=== PATIENT | male | born 1955 | race Caucasian/White ===

== ENCOUNTER 2023-09-12 22:07 | Emergency (ER) | payer OTHER, SELFPAY ==
[2023-09-12 22:09] VITALS: BP 155/104
[2023-09-12 23:47] VITALS: BMI 29.0
--- NOTE | 2023-09-13 00:10 | ED.GENMED ---
History of Present Illness
General
Chief Complaint: Eye Problems
Source: patient
Exam Limitations: none
Time Seen by Provider: 09/12/23 23:35
Nursing documentation reviewed up to this point in time: agreed with
Travel History
Have you had any contact with someone who has COVID-19?: No
Do you have any symptoms of coronavirus? Fever > 100 degrees, chills, cough, shortness of breath, sore throat, loss of taste or smell, muscle aches, or headache?: No
History of Present Illness
History of Present Illness:
Pleasant 67-year-old male presents with left eye injury. He was gardening and bent down and had a brain scratch his left eye. Patient does report some pain in the eye. He was concerned that there was a foreign body. He denies any other injury.
Patient unsure of his last tetanus shot. Does not wear contact lenses.
Review of Systems
Review of Systems
Allergies reviewed?: Yes
All Other Systems: ROS reviewed and negative except as documented in HPI and ROS
Constitutional: Reports no symptoms
EENT: Reports tearing
Respiratory: Reports no symptoms
Cardiac: Reports no symptoms
ABD/GI: Reports no symptoms
: Reports no symptoms
Musculoskeletal: Reports no symptoms
Skin: Reports no symptoms
Neurological: Reports no symptoms
Endocrine: Reports no symptoms
Hematologic/Lymphatic: Reports no symptoms
Psychiatric: Reports no symptoms
Phy Exam
General Physical Exam
General Presentation: well appearing and mild distress
General Skin: warm and dry
General Habitus: normal
Eye Exam
Eye Exam: PERRL and EOMI
Able to obtain acuity?: Yes (See nursing note)
Pupil Exam: Bilateral: round and reactive
Cornea Exam: abrasion: Left
Pupil and Lens Exam: round pupil: Bilateral
Musculoskeletal Exam
Musculoskeletal Exam: full ROM
Skin Exam
Skin Exam: normal color and warm/dry
Psychiatric Exam
Psychiatric Exam: normal mood/affect
Course
Orders/Labs/Results
Orders:
Orders
09/13/23 00:07
Gentamicin [Genoptic 0.3% Eye Drops] See Dose Instructions OPHTH NOW STA
Tetanus/Diphth/Acelpertussis [Adacel] 0.5 ml IM .ONCE ONE
Vital Signs
Initial and Last Documented VS:
Initial Vital Signs
Temp Pulse Resp BP Pulse Ox
97.8 F 74 18 155/104 97
09/12/23 22:09 09/12/23 22:09 09/12/23 22:09 09/12/23 22:09 09/12/23 22:09
Last Documented Vital Signs
Temp Pulse Resp BP Pulse Ox
97.8 F 74 18 155/104 97
09/12/23 22:09 09/12/23 22:09/12/23 22:09/12/23 22:09 09/12/23 22:09
*Critical Care Note
Total Time (30-74mins, 75-104mins- exclusive of procedures): Not Applicable
Update Note
Update Note:
Patient normally sees Dr. Hector. He will call in the morning for checkup.
Funduscopic exam is within normal limits. Slit-lamp exam using fluorescein, tetracaine, did not see any evidence of foreign body. There is corneal abrasion, extensively in the the center and at the 4 o'clock position. There is scant some
conjunctival hemorrhage
ED Attending Note
-
Portions of this chart may have been created with voice recognition software.� Occasional wrong word or��sound alike� substitutions may have occurred due to the inherent limitations of voice recognition software.
Discharge Plan
Departure
Patient Disposition: Home (Routine Discharge)
Date of Disposition: 09/13/23
Time of Disposition: 00:14
Patient with high blood pressure during this ER visit?: Yes
Discharge Problem:
Corneal abrasion
Instructions: Corneal Abrasion (DC), How to Use Eye Drops
Prescriptions:
No Action
atorvastatin 10 MG tablet
10 mg PO QPM
sertraline 25 MG tablet
25 mg PO HS
albuterol sulfate 1 PUFF HFA aerosol inhaler
1 puff inhalation R [id number] PRN (Reason: WHEEZE)
cyclosporine [Restasis] 10 DROPS dropperette
1 drp BOTH EYES BID
testosterone [AndroGel] 75 GM gel in metered-dose pump
2 pump topical DAILY
Metamucil Packet
1 packet PO TID
montelukast [Singulair] 10 mg Tablet
10 mg PO HS
fluticasone furoate-vilanterol [Breo Ellipta] 200-25 mcg/dose Blister With Device
1 inh INHALATION DAILY
Metamucil
1 gummy PO DAILY
Vitamin B12 Complex
1 tab PO DAILY
ibuprofen 200 MG tablet
600 mg PO PRN PRN (Reason: arthritis pain )
Rx Instructions:
take 4x/day (with meals and at bedtime) through Monday night; thereafter take as needed
Eliquis 5 mg tablet
5 mg PO BID Qty: 74 0RF
Rx Instructions:
10mg PO bid x 7 days, then 5mg po bid
Eliquis 5 mg tablet
5 mg PO BID Qty: 60 0RF
Rx Instructions:
Starting 11/24/2022
doxycycline monohydrate 100 mg tablet
100 mg PO BID 5 Days Qty: 10 0RF
Referrals:
Gerhard Marin MD [Family Provider] -
Cliff Hector MD [Active] - Next open appointment
Activity Restrictions/Additional Instructions:
Please apply 1 drop of the gentamicin eyedrops provided to your left eye every 4 hours while awake for the next 5 days
It was a pleasure meeting you and taking part in your care. We hope for your continued healing and wellness.
Please read discharge instructions in their entirety. However, they are for general education and may not describe your exact diagnosis at discharge. Information on your ER visit and medical conditions were discussed with you along with appropriate
follow up information...
If indicated, please take your medications as instructed and indicated on discharge paperwork.
Please schedule a follow up appointment as directed. Call to schedule an appointment
Please return to the emergency department with ANY change in, persisting, or worsening of symptoms. If any of your symptoms do not improve, or persist, or become more severe within 6-12 hours, please return to the emergency department for further
care.
Please return to the emergency department if you develop a headache, neck pain/stiffness, fever greater than 100.4F, chest pain, shortness of breath, persistent nausea, vomiting, slurred speech, difficulty walking, numbness/tingling, weakness, signs
of infection or any other symptoms that are worrisome to you.
If you have any questions or concerns please do not hesitate to call the Hospital at or E-mail me directly at [email or web address]
Interventions
Interventions:
*Risk Screen - Suicide Last Done: 09/12/23 22:09
*General Assessment Last Done: 09/12/23 23:48
*Neglect/Abuse Screening Last Done: 09/12/23 22:09
ED- Fall Risk Assessment Last Done: 09/12/23 23:48
*ED COVID-19 Vaccine History Last Done: 09/12/23 23:48
[2023-09-13] MEDS: ADACEL 0.5 ML IM (00:20)
[2023-09-13] MEDS: GENOPTIC 0.3% EYE DROPS 1 DROP OPHTH (00:25)
[2023-09-13 00:32] VITALS: BP 143/93
== END 2023-09-13 00:30 | disposition home or self-care (01) ==
LOC: EMR 22:07
PROVIDERS: EMERGENCY PHYSICIAN Student in an Organized Health Care Education/Training Program; FAMILY PHYSICIAN Family Medicine
DX: S05.00XA Injury of conjunctiva and corneal abrasion without foreign body, unspecified eye, initial encounter (principal); W22.8XXA Striking against or struck by other objects, initial encounter; Z23 Encounter for immunization
CPT/HCPCS: 99282; 90471; 90715

== ENCOUNTER → 2023-12-17 09:43 | Outpatient (REF) | payer OTHER, SELFPAY | LOC: MRI 3T 09:43 | PROVIDERS: ATTENDING PHYSICIAN Specialist; FAMILY PHYSICIAN Family Medicine | DX: M54.16 Radiculopathy, lumbar region (principal); M54.50 Low back pain, unspecified | CPT/HCPCS: 72148 ==

== ENCOUNTER → 2024-04-16 17:07 | Outpatient (REF) | payer OTHER, SELFPAY | LOC: PAVMRI 17:07 | PROVIDERS: ATTENDING PHYSICIAN Specialist; FAMILY PHYSICIAN Family Medicine | DX: M25.511 Pain in right shoulder (principal) | CPT/HCPCS: 73221 ==